=== PATIENT | female | born 1955 | race Caucasian/White ===

== ENCOUNTER 2017-05-05 06:34 | Day surgery (SDC) | payer OTHER ==
--- NOTE | 2017-04-28 09:58 | HP ---
PREOPERATIVE HISTORY AND PHYSICAL: DATE OF ADMISSION/SURGERY: 05/05/17 DATE OF OFFICE VISIT: 04/25/17 ATTENDING SURGEON: Сергей Jamison MD * (DICTATED BY SERGEI HILL) PROCEDURE: Right shoulder arthroscopic rotator cuff repair, decompression, debridement, excision of distal clavicle, possible biceps tenodesis, arthroscopic versus subpectoral. CHIEF COMPLAINT: Right shoulder. HISTORY OF PRESENT ILLNESS: Evelyn is a 61-year-old female who presents to the clinic for work-related injury to her right shoulder that caused a rotator cuff tear. She has failed conservative measures to include therapy, exercise, and has therefore agreed to undergo right shoulder arthroscopic rotator cuff repair , decompression, debridement, excision of distal clavicle, possible biceps tenodesis, arthroscopic versus subpectoral with Dr. Jamison on 05/05/17. PAST MEDICAL HISTORY: Hypertension. PAST SURGICAL HISTORY: C-sections and breast biopsy. The patient denies prior complications with anesthesia. MEDICATIONS: 1. Losartan potassium 50 mg 1 by mouth every day. 2. Aleve 220 mg 2 tablets as needed for pain. ALLERGIES: No known drug allergies. FAMILY HISTORY: Positive for hypertension in her siblings. SOCIAL HISTORY: She lives with her son. She works in [employer] at [employer]. She reports occasional alcohol consumption. She smokes 1 pack per day. REVIEW OF SYSTEMS: A 14-point review of systems was reviewed with the patient, positive for current complaint, otherwise negative. Denies fevers, chills, night sweats. No shortness of breath. Denies history of DVT or PE. Denies bleeding disorders or history of MRSA. PHYSICAL EXAMINATION GENERAL: Well-developed, well-nourished, 61-year-old female in no acute distress. Alert and oriented x3. Appropriate mood and affect. VITAL SIGNS: Height 61, weight 193, pulse 98, blood pressure 136/102, temperature 97.9, BMI 36.5. HEENT: Normocephalic and atraumatic. PERRLA. NECK: Supple. Throat clear. PULMONARY: Lungs are clear to auscultation bilaterally. No wheezing, rhonchi, or rales. CARDIAC: Regular rate and rhythm. S1 and S2. No murmurs, gallops, or rubs. No edema. ABDOMEN: Positive bowel sounds. Soft and nontender. NEURO: Alert and oriented x3. Cranial nerves grossly intact. Sensation intact to light touch. MUSCULOSKELETAL: Right upper extremity, skin is intact. No warmth or erythema. Forward flexion to 140, passive to 170, active abduction to 160, external rotation to 45, internal rotation to lumbar spine. +4/5 strength with supraspinatus testing with pain. +4/5 to infraspinatus and subscapularis testing with pain. Positive Neer's, Speed's, Ellis-Paul, [place]'s. Positive Becky's. Tenderness over the AC joint and proximal biceps. +2 radial pulse. Sensation is intact to light touch distally. DIAGNOSTIC STUDIES: MR arthrogram revealed full-thickness tear of the supraspinatus tendon with retraction. IMPRESSION: Right shoulder rotator cuff tear, acromioclavicular joint arthritis , and biceps tendinitis. PLAN: The patient is scheduled to undergo a right shoulder arthroscopic rotator cuff repair, decompression, debridement, excision of distal clavicle, possible biceps tenodesis, arthroscopic versus subpectoral, with Dr. Jamison on 05/05/17. She will return to the office 10 to 14 days for postoperative followup and suture removal. She was taken out of work starting 04/25/17 until further notice due to the surgery. Percocet was sent to the patient's pharmacy for postop pain management. SERGEI HILL [id number]/[facility] #: [id number] MTDConnie
[~2017-05-05 06:34] MED LIST: Buffered Lidocaine 0.9% SYRIN* 5 ML/SYR SYRINGE INTRADERM ONE; Famotidine IV* 10 MG/ML 2 ML (20 mg) IV ONE; Famotidine IV* 10 MG/ML 2 ML (20 mg) ONE
[2017-05-05] MEDS ORDERED: ceFAZolin 2 GM PREMIX (*) 2 GM/50 ML BAG IVPB ONE (06:45)
[2017-05-05] MEDS ORDERED: DiMENhydriNATE IV* 50 MG/ML VIAL IV PUSH PRN (06:58)
[2017-05-05] MEDS ORDERED: PROCHLORPERAZINE INJ 5 MG/ML 2 ML VIAL IV PRN (06:58)
[2017-05-05] MEDS ORDERED: oxyCODONE/Acetamin 5/325 MG* TAB PO PRN (06:58)
[2017-05-05] MEDS ORDERED: Naloxone* 0.4 MG/ML 1 ML VIAL IV PRN (06:58)
[2017-05-05] MEDS ORDERED: Scopolamine 1.5 mg* PATCH TRANSDERM PRN (06:58)
[2017-05-05] MEDS ORDERED: fentaNYL* 50 MCG/ML 2 ML VIAL (100 MCG VIAL) IV PRN (06:58)
[2017-05-05] MEDS ORDERED: Morphine INJ* 2 MG/ML 1 ML CARPUJECT IV PRN (06:58)
[2017-05-05] MEDS ORDERED: Bupivacaine 0.25% SDV* 30 ML ONE ×2 (07:02→07:14)
[2017-05-05] MEDS ORDERED: fentaNYL* 50 MCG/ML 2 ML VIAL (100 MCG VIAL) ONE ×2 (07:04→09:18)
[2017-05-05] MEDS ORDERED: Midazolam* 1 MG/ML 2 ML VIAL (2 MG) ONE (07:04)
[2017-05-05] MEDS ORDERED: KETAMINE HCL* 50 MG/ML 10 ML VIAL ONE (07:05)
[2017-05-05] MEDS ORDERED: Propofol* 10 MG/ML 20 ML BTL IV PUSH ONE (08:17)
[2017-05-05] MEDS ORDERED: Dexamethasone IV* 4 MG/ML 1 ML (4 MG) ONE (08:17)
[2017-05-05] MEDS ORDERED: Phenylephrine IV* 40 MCG/ML 10 ML SYRINGE ONE (08:17)
[2017-05-05] MEDS ORDERED: Ondansetron INJ* 2 MG/ML VIAL ONE (08:17)
[2017-05-05] MEDS ORDERED: Ketorolac INJ* 30 MG/ML 1 ML VIAL ONE (08:17)
[2017-05-05] MEDS ORDERED: EPHEDrine (Pressors)* 50 MG/ML VIAL ONE (08:17)
[2017-05-05] MEDS ORDERED: Morphine INJ* 10 MG/ML 1 ML CARPUJECT ONE (09:25)
[2017-05-05] MEDS ORDERED: Labetalol IV* 5 MG/ML 20 ML VIAL ONE (09:44)
[2017-05-05 10:56] VITALS: BP 106/84
--- NOTE | 2017-05-08 00:34 | OP ---
DATE OF OPERATION: 05/05/17 [facility] DATE OF : 57 SURGEON: Сергей Jamison MD WEDGER AND GLUER: SERGEI Croft ANESTHESIOLOGIST: Dr. Forte. ANESTHESIA: General interscalene block. PRE-OPERATIVE DIAGNOSES: Right shoulder rotator cuff tear with flap tear, bicipital tendonitis, and AC joint arthritis. POST-OPERATIVE DIAGNOSES: Right shoulder rotator cuff tear with flap tear, bicipital tendonitis, and AC joint arthritis. OPERATIVE PROCEDURE: Right shoulder arthroscopy with: 1. Glenohumeral debridement. 2. Cervical decompression with acromioplasty. 3. Distal clavicle excision. 4. Rotator cuff repair double row fashion. 5. Subpectoral biceps tenodesis. COMPLICATIONS: None. ESTIMATED BLOOD LOSS: Minimal. IMPLANTS USED: Two Healicoil and one Multifix and one 2.8 mm Q-Fix. INDICATIONS: Evelyn Quach is a 61-year-old female who sustained a work related injury to her right shoulder. She has failed conservative management and has elected to proceed with surgical debridement. Risks and benefits of surgery were discussed at length and include, but are not limited to bleeding, infection , damage to nerves, vessels, surrounding structures, wound nonhealing, persistent pain, need for further surgery, scarring, stiffness, incomplete relief of symptoms, risks of anesthesia. She has elected to proceed. DESCRIPTION OF PROCEDURE: The patient was greeted in the preoperative area by the attending surgeon. Correct extremity was marked and consent was confirmed. She underwent block in the preanesthesia area, she then was brought to the operating suite where she was placed in supine position on the operating table. She was then gently placed in a left lateral decubitus position with axillary roll, all bony prominences padded, she was secured with a peg board. The right shoulder was draped unsterile with 10 pounds of traction. The right shoulder was prepped and draped in the usual sterile fashion beginning with chlorhexidine soap, scrub, and alcohol wipe and a final prep with ChloraPrep. After appropriate surgical pause indicating side, site, and procedure and administration of antibiotics, the standard posterolateral portal was made sharply with an 11 blade. Scope was introduced into the joint, the joint was examined. There were grade 0 to 1 changes at the glenohumeral joint. The anterior, posterior, superior labrum had unstable fraying. There was type 2 SLAP tear with subluxation of the biceps anteriorly. The undersurface of the subscap had partial thickness tearing, only about 5% to 10%. Decision was made to debride the supraspinatus and do a biceps tenotomy for plan for tenodesis. The anterior portal was made in an outside-in fashion. The anterior posterior superior labrum was debrided back. The undersurface of the supraspinatus was debrided back. The biceps was tenotomized. There was evidence of full thickness rotator cuff tear anteriorly. The scope was positioned in the subacromial space. The lateral portals were made in outside-in fashion. The shaver was used to debride the abundant bursa, which was present. The undersurface of the acromion had a large, sharp anterolateral spur. This was debrided back using a 4-0 oval kayley. Once that was done, attention was directed to the distal clavicle, which had abundant stenosis, first it was coplaned from the lateral portal and then attention was directed to the AC joint. The kayley was brought in to the anterior portal. Approximately 8 mm of the distal clavicle was carefully released under direct arthroscopic visualization. The clavicle was then taken through range of motion and found to have enough resection with care to prevent damage to the CC ligaments. Once this was completed, attention was directed to the rotator cuff. All fluid and debris were removed and attention was directed to the cuff, which was probed. There was a full thickness tear, anterior superiorly and then partial thickness tearing along supraspinatus tendon. The electrocautery device was used to complete the tear. The greater tuberosity was prepared with the rasp as well as the electrocautery device as well as the kayley to gently decorticate. The two 4.75 Healicoils were placed with excellent purchase. The awl was then used to microfracture the greater tuberosity for further points of fixation. Sutures were then passed in a horizontal mattress configuration through the tendon beginning anteriorly and then posteriorly. Using using arthroscopic knot tying, the sutures were then passed through a Multifix anchor, which was then used for a lateral row fixation. The final images were obtained. The cuff was compressed to the greater tuberosity. The wounds were copiously irrigated. Final images were obtained. Attention was directed to the biceps. The bed was airplaned to the right side and the anterior aspect of the shoulder was prepped again using ChloraPrep. The #15 blade was used to make an incision along the biceps tendon. Soft tissues were carefully dissected to expose the groove, which was palpated. The biceps was brought through the wound and found to have abundant synovitis and inflammation. The groove was then prepared in usual fashion with a rasp osteotome, electrocautery device and a Q-Fix anchor was used to drill unicortically. The Q-Fix was deployed with excellent purchase. Sutures were passed through the tendon in a horizontal mattress configuration and approximately 1 cm proximal to the musculotendinous junction. Once the sutures were passed, the excess stump was excised, the biceps was shuttled back to the wound and tied down. The wound was copiously irrigated. Final images were obtained. Sterile dressings were applied. The anterior wound was injected with 0.25% Marcaine plain. She was awoken from anesthesia and transferred to the PACU in stable condition. POSTOPERATIVE PLAN: She will be nonweightbearing. She will be in a sling for approximately 6 weeks. She will be discharged on pain medications and antibiotics. DVT prophylaxis was considered, but deferred due to no previous personal or family history. I will see the patient back in 10 to 14 days. [id number]/[facility] #: [id number] MAKENNA
[2017-05-08] MEDS ORDERED: Scopolamine PATCH Remove* 1 NOTE MISC PATCH OFF ONE (07:00)
== END 2017-05-05 11:06 | disposition home or self-care (01) ==
LOC: OREAST 06:34
PROVIDERS: ATTEND Orthopaedic Surgery
DX: M75.121 Complete rotator cuff tear or rupture of right shoulder, not specified as traumatic (principal); S46.101A Unspecified injury of muscle, fascia and tendon of long head of biceps, right arm, initial encounter; M19.211 Secondary osteoarthritis, right shoulder; I10 Essential (primary) hypertension; F17.210 Nicotine dependence, cigarettes, uncomplicated; X58.XXXA Exposure to other specified factors, initial encounter
CPT/HCPCS: C1713; C1776; J0690; J1100; J1885; J2250; J2270; J2405; J2704; J3010